=== PATIENT | female | born 1950 | race Caucasian/White ===

== ENCOUNTER 2018-01-14 10:39 | Inpatient (IN) | payer MEDICARE, OTHER ==
[~2018-01-14] VITALS: Ht 154.9 cm; Wt 89.8 kg
[~2018-01-14 10:39] MED LIST: AUGMENTIN 875875 MG PO; PREDNISONE 20 M20 M1 PO; PRINZIDE 10-121 EACH PO; PROAIR HFA8.5 GM IH; PROTONIX40 M2 PO; SYNTHROID112 MC1 PO; XANAX XR2 MG PO
[2018-01-14 10:50] VITALS: BP 126/73
[2018-01-14 11:21] LABS: HEMATOCRIT 34.4 % (37.0-47.0); HEMOGLOBIN 11.8 gm/dL (12.0-15.0); MCH 28.5 pg (26.0-34.0); MCHC 34.4 g/dL (28.0-37.0); MCV 82.9 fL (80.0-100.0); MPV 10.8 fl. (7.2-11.1); NUCLEATED RBCS 3 /100WBC; RBC 4.15 mil/uL (4.20-5.00); RDW-CV 13.2 % (10.5-14.5); WBC 29.3 thou/uL (4.0-11.0)
[2018-01-14] MEDS ORDERED: KLOR-CON 1010 MEQ PO (11:29)
[2018-01-14] MEDS ORDERED: ASPIR 8181 MG PO (11:29)
[2018-01-14] MEDS ORDERED: CHLORTHALIDONE25 MG PO (11:29)
[2018-01-14] MEDS ORDERED: ALIGN4 MG PO (11:30)
[2018-01-14] MEDS ORDERED: VITAMIN D1000 UNI1 PO (11:31)
[2018-01-14] MEDS ORDERED: DHA ALGAL-900300 MG PO (11:32)
[2018-01-14] MEDS ORDERED: VITAMIN B COMP1 EACH PO (11:32)
[2018-01-14] MEDS ORDERED: COLACE100 MG PO (11:33)
[2018-01-14] MEDS ORDERED: ADVAIR HFA 230M12 GM INH (11:34)
[2018-01-14] MEDS ORDERED: SPIRIVA INH (11:34)
[2018-01-14 11:41] LABS: ANION GAP 14 mmol/L (7-16); BUN 27 mg/dL (7-18); CALCIUM 11.4 mg/dL (8.5-10.1); CHLORIDE 83 mmol/L (98-107); CO2 24 mmol/L (21-32); CREATININE 1.1 mg/dL (0.6-1.3); GLUCOSE 116 mg/dL (70-99); SODIUM 121 mmol/L (136-145)
[2018-01-14 11:53] LABS: PLATELET COUNT* 15 thou/uL (150-400)
[2018-01-14 11:58] LABS: ALBUMIN 3.1 g/dL (3.4-5.0); ALKALINE PHOSPHATASE 205 U/L (46-116); LIPASE 166 U/L (73-393); SGOT 379 U/L (15-37); SGPT 104 U/L (30-65); TOTAL BILIRUBIN 1.3 mg/dL (<0.1-1.0); TOTAL PROTEIN 7.1 g/dL (6.4-8.2); TROPONIN-I LEVEL <0.06 ng/mL (<0.06)
[2018-01-14 11:59] LABS: ABSOLUTE MONOCYTES 3.2 thou/uL (0.0-1.2); METAMYELOCYTES 4 %; MYELOCYTES 2 %; PLATELET ESTIMATE DECREASED
[2018-01-14 12:00] LABS: POLYCHROMASIA Occasional
[2018-01-14 12:01] LABS: MACROCYTES 1+
[2018-01-14 12:24] LABS: URINE BILIRUBIN NEGATIVE (Negative); URINE BLOOD TRACE (Negative); URINE CLARITY CLEAR; URINE COLOR YELLOW; URINE GLUCOSE-RANDOM NEGATIVE (Negative); URINE KETONES NEGATIVE (Negative); URINE LEUKOCYTES-REFLEX NEGATIVE (Negative); URINE NITRITE-REFLEX NEGATIVE (Negative); URINE PROTEIN NEGATIVE (Negative); URINE UROBILINOGEN 0.2 E.U./dl (0.2-1.0)
[2018-01-14 14:17] LABS: URINE POTASSIUM-RANDOM 59.8 mmol/L
[2018-01-14 14:55] VITALS: BP 142/65
[2018-01-14 15:03] VITALS: BP 129/58
[2018-01-14 18:08] VITALS: BP 117/63; BP 124/64
[2018-01-14 18:33] LABS: CALCIUM 10.5 mg/dL (8.5-10.1); POTASSIUM 3.6 mmol/L (3.5-5.1)
[2018-01-14 18:37] LABS: APTT 27.8 Seconds (25.0-31.3); INR 1.2; PROTIME 11.4 Seconds (9.20-11.50)
[2018-01-14 20:00] VITALS: BP 126/69
[2018-01-14 20:31] LABS: ABSOLUTE BASOPHILS 0.2 thou/uL (0.0-0.2); ABSOLUTE EOSINOPHILS 0.3 thou/uL (0.0-0.7); ABSOLUTE LYMPHOCYTES 6.9 thou/uL (0.8-5.3); ABSOLUTE MONOCYTES 2.7 thou/uL (0.0-1.2); BASOPHILS 0.7 %; HEMATOCRIT 32.6 % (37.0-47.0); HEMOGLOBIN 11.2 gm/dL (12.0-15.0); LYMPHOCYTES 23.7 %; MCH 28.5 pg (26.0-34.0); MCHC 34.3 g/dL (28.0-37.0); MCV 83.3 fL (80.0-100.0); MONOCYTES 9.3 %; MPV 8.1 fl. (7.2-11.1); NUCLEATED RBCS 2 /100WBC; POLYS 65.3 %; RBC 3.92 mil/uL (4.20-5.00); RDW-CV 13.4 % (10.5-14.5); WBC 29.1 thou/uL (4.0-11.0)
[2018-01-14 20:32] LABS: PLATELET COUNT* 65 thou/uL (150-400)
[2018-01-14 22:00] VITALS: BP 131/63
[2018-01-15] VITALS (18 sets, daily range): BP systolic 109–133; BP diastolic 46–65
[2018-01-15 06:06] LABS: HEMATOCRIT 26.1 % (37.0-47.0); HEMOGLOBIN 9.2 gm/dL (12.0-15.0); MCHC 35.2 g/dL (28.0-37.0); MCV 82.2 fL (80.0-100.0); MPV 8.7 fl. (7.2-11.1); NUCLEATED RBCS 8 /100WBC; RBC 3.18 mil/uL (4.20-5.00); RDW-CV 13.2 % (10.5-14.5); WBC 26.3 thou/uL (4.0-11.0)
[2018-01-15 06:08] LABS: CALCIUM 10.1 mg/dL (8.5-10.1); CREATININE 0.9 mg/dL (0.6-1.3); POTASSIUM 3.9 mmol/L (3.5-5.1)
[2018-01-15 06:09] LABS: PLATELET COUNT* 29 thou/uL (150-400)
[2018-01-15 07:34] LABS: ABSOLUTE BASOPHILS 0.3 thou/uL (0.0-0.2); ABSOLUTE EOSINOPHILS 0.3 thou/uL (0.0-0.7); ABSOLUTE LYMPHOCYTES 2.4 thou/uL (0.8-5.3); ABSOLUTE MONOCYTES 1.3 thou/uL (0.0-1.2); ABSOLUTE NEUTROPHILS 22.1 thou/uL (1.6-8.1); ATYPICAL MONONUCLEARS 2 %; METAMYELOCYTES 4 %; MYELOCYTES 1 %
[2018-01-15 07:36] LABS: HYPOCHROMASIA 2+; POLYCHROMASIA 2+
[2018-01-15 07:38] LABS: PLATELET ESTIMATE DECREASED
--- NOTE | 2018-01-15 12:29 | CON ---
[address] [address] CONSULTATION Name: BARTLETTTONYA J Room: [address] ADM IN M.R.#: [id number] Admission: 01/14/18 Attend Phys: Davidson De Leon MD Discharge: Date of : 54 Report #: [id number] THIS REPORT FOR: //name// CC: Davidson De Leon Jus Stokes DATE OF SERVICE: 01/14/2018 ATTENDING PHYSICIAN: Davidson De Leon MD REASON FOR EVALUATION: Abdominal pain with hepatitis, hyponatremia and thrombocytopenia. HISTORY OF PRESENT ILLNESS: Chart reviewed, patient examined. This is a 67-year-old woman with a known COPD, history of Graves' disease, reflux as well who is admitted through the emergency room with a several day history of abdominal pain starting perhaps 3-4 days ago associated with anorexia, poor p.o. intake, nausea with attempted eating. Also she has had some hemoptysis. On evaluation, found to have elevated LFTs. She did note she has been taking primarily acetaminophen, but some degree ibuprofen as well for the pain. She has developed some weight loss of 12 pounds in the last couple of weeks. She does have easy bruising and was confirmed to have thrombocytopenia as well. Imaging studies are concerning including a CT chest, which shows bilobed irregular shaped soft tissue mass extending at the aortopulmonary window and left suprahilar region. CT abdomen as well as ultrasound raise question of some multiple hypodense lesions in the liver. There is a question of metastatic disease. Lactic acid was peaked at 7.3 and repeat was 6.0. She is empirically started on antibiotics with a dose of piperacillin and tazobactam. She is lucid and does admit to have moderate discomfort. ALLERGIES: TETRACYCLINE, HYDROCODONE, ACETAMINOPHEN AND ERYTHROMYCIN. CURRENT MEDICATIONS: Include levothyroxine, albuterol, budesonide, cholecalciferol, pantoprazole, metoprolol and ondansetron. PAST MEDICAL HISTORY: Above noted COPD, hypothyroidism, previous cholecystectomy and reflux. SOCIAL HISTORY: Former smoker, [id number]. No ethanol. FAMILY HISTORY: Noncontributory. REVIEW OF SYSTEMS: As above. PHYSICAL EXAMINATION: GENERAL: She is a pleasant and alert. She appears somewhat chronically ill, [place] [address] CONSULTATION Name: TONYA BARTLETT Room: [address] IN [facility]#: [id number] Admission: 01/14/18 Attend Phys: Davidson De Leon MD Discharge: Date of : 54 Report #: [id number] undernourished, in some mild distress. VITAL SIGNS: Temperature 97.6, pulse 90, respirations 16 and blood pressure 129/58. SKIN: Warm, dry and no rashes. HEENT: Otherwise unremarkable. He has got nasal cannula oxygen in place. NECK: Supple. LUNGS: Scattered coarse breath sounds. HEART: Regular. Borderline tachycardic. I do not appreciate a murmur. ABDOMEN: Distended, soft, somewhat tender, although I do not think there are any overt peritoneal signs. GENITOURINARY AND RECTAL: Deferred. LABORATORY DATA: Electrolytes: Sodium 121, potassium 4, chloride 83, bicarbonate is 24, BUN and creatinine 27 and 1.1 and glucose of 116. AST of 379, ALT 104, total bilirubin 1.3, alkaline phosphatase is 205. Albumin is 3.1. Total protein 7.1. CBC: White count 29.3, H and H 11.8 and 34.4, platelets of 15. Urinalysis is unremarkable. Chest x-ray: Left suprahilar medial lung or mediastinal density. CT of abdomen and pelvis and ultrasound, multiple hepatic nodules and multiple periportal peripancreatic lymph nodes. CT of the chest showed an irregular mass 5.0 x 3.2 x 4.7 cm and the lactic acid initially 7.3 and repeat was 6.0. ASSESSMENT: Pulmonary mass, multiple liver lesions, hepatitis, certainly concerning for occult process such as malignancy. I think it is reasonable to continue empiric antimicrobial therapy at this point. I do not have any particular exposure history, but we will go ahead and check additional studies such as a TSH, cortisol level and Tylenol level and we will await culture results. Discussed with Dr. De Leon. <ELECTRONICALLY SIGNED> By: Elmer Whitt MD 01/15/18 1229 1719 [id number] Whitt MD /nt
--- NOTE | 2018-01-15 12:58 | EKG ---
[place] [address] ELECTROCARDIOGRAM REPORT Name: TONYA BARTLETT Room: [address] IN .R.#: [id number] Admission: 01/14/18 Attend Phys: Davidson De Leon MD Discharge: Date of : 54 Report #: [id number] THIS REPORT FOR: //name// [facility] ED Test Date: 2018-01-14 Test Time: 11:02:53 Pat Name: TONYA BARTLETT Department: Room: Gender: Bilingual Teacher Aide: Jannette CARTAGENA : 1950 Requested By: Albaro Neff Order Number: [id number] MD: Kike Valle Measurements Intervals [place] Rate: 103 P: 81 AR: 155 QRS: 57 QRSD: 94 T: 63 QT: 341 QTc: 447 Interpretive Statements Sinus tachycardia Borderline T abnormalities, anterior leads No previous ECG available for comparison Electronically Signed On 01-15-2018 12:57:55 CDT by Kike Valle [email or web address] <ELECTRONICALLY SIGNED> By: Kike Valle MD, [facility] 01/15/18 1257 01 01 Kike Valle MD, FACC /EPI
[2018-01-15 22:06] LABS: HIV-1/HIV-2 ANTIBODY Non Reactive (Non Reactive)
[2018-01-16] VITALS: BP 127/59
[2018-01-16 02:00] VITALS: BP 104/38
[2018-01-16 02:12] LABS: HEPATITIS B SURFACE AG Negative (Negative)
[2018-01-16 05:14] LABS: ALBUMIN 2.7 g/dL (3.4-5.0); CALCIUM 10.8 mg/dL (8.5-10.1); CREATININE 0.9 mg/dL (0.6-1.3); POTASSIUM 3.8 mmol/L (3.5-5.1); TOTAL BILIRUBIN 1.1 mg/dL (<0.1-1.0); TOTAL PROTEIN 6.1 g/dL (6.4-8.2)
[2018-01-16 05:47] LABS: ABSOLUTE EOSINOPHILS 0.3 thou/uL (0.0-0.7); EOSINOPHILS 1.1 %; HEMOGLOBIN 8.8 gm/dL (12.0-15.0); WBC 25.2 thou/uL (4.0-11.0)
[2018-01-16 05:49] LABS: ABSOLUTE BASOPHILS 0.2 thou/uL (0.0-0.2); ABSOLUTE LYMPHOCYTES 5.8 thou/uL (0.8-5.3); ABSOLUTE MONOCYTES 2.7 thou/uL (0.0-1.2); ABSOLUTE NEUTROPHILS 16.2 thou/uL (1.6-8.1); BASOPHILS 0.7 %; HEMATOCRIT 24.8 % (37.0-47.0); LYMPHOCYTES 23.1 %; MCH 29.5 pg (26.0-34.0); MCHC 35.5 g/dL (28.0-37.0); MONOCYTES 10.7 %; MPV 8.5 fl. (7.2-11.1); NUCLEATED RBCS 13 /100WBC; POLYS 64.4 %; RBC 2.99 mil/uL (4.20-5.00); RDW-CV 13.5 % (10.5-14.5)
[2018-01-16 06:01] LABS: PLATELET COUNT* 30 thou/uL (150-400)
[2018-01-16 09:00] VITALS: BP 114/83
[2018-01-16 13:08] LABS: CALCIUM 10.8 mg/dL (8.5-10.1); POTASSIUM 3.5 mmol/L (3.5-5.1)
[2018-01-16 15:41] VITALS: BP 122/57
[2018-01-16 20:00] VITALS: BP 134/72
[2018-01-17 00:24] VITALS: BP 134/68
[2018-01-17 03:56] VITALS: BP 121/59
[2018-01-17 07:45] VITALS: BP 122/58
[2018-01-17 08:19] LABS: ABSOLUTE BASOPHILS 0.2 thou/uL (0.0-0.2); ABSOLUTE EOSINOPHILS 0.2 thou/uL (0.0-0.7); ABSOLUTE LYMPHOCYTES 6.5 thou/uL (0.8-5.3); ABSOLUTE MONOCYTES 2.6 thou/uL (0.0-1.2); ABSOLUTE NEUTROPHILS 15.1 thou/uL (1.6-8.1); BASOPHILS 0.9 %; HEMATOCRIT 24.3 % (37.0-47.0); HEMOGLOBIN 8.4 gm/dL (12.0-15.0); LYMPHOCYTES 26.5 %; MCH 28.9 pg (26.0-34.0); MCHC 34.6 g/dL (28.0-37.0); MCV 83.4 fL (80.0-100.0); MONOCYTES 10.4 %; MPV 8.6 fl. (7.2-11.1); NUCLEATED RBCS 21 /100WBC; POLYS 61.2 %; RBC 2.91 mil/uL (4.20-5.00); WBC 24.7 thou/uL (4.0-11.0)
[2018-01-17 08:21] LABS: PLATELET COUNT* 19 thou/uL (150-400)
[2018-01-17 12:29] VITALS: BP 119/59
[2018-01-17 16:21] VITALS: BP 114/60
[2018-01-17 20:00] VITALS: BP 123/54
[2018-01-18] VITALS: BP 122/57
[2018-01-18 04:00] VITALS: BP 155/55
[2018-01-18 05:08] LABS: CREATININE 0.9 mg/dL (0.6-1.3)
[2018-01-18 08:20] VITALS: BP 109/56
[2018-01-18 11:42] VITALS: BP 111/53
[2018-01-18 16:00] VITALS: BP 113/38
[2018-01-18 20:42] VITALS: BP 121/62
[2018-01-19 00:11] VITALS: BP 118/61
[2018-01-19 03:50] VITALS: BP 112/55
[2018-01-19 06:55] LABS: ALBUMIN 2.6 g/dL (3.4-5.0); CALCIUM 9.1 mg/dL (8.5-10.1); POTASSIUM 4.3 mmol/L (3.5-5.1); TOTAL BILIRUBIN 5.1 mg/dL (<0.1-1.0); TOTAL PROTEIN 5.3 g/dL (6.4-8.2)
[2018-01-19 07:45] VITALS: BP 128/60
[2018-01-19 13:26] VITALS: BP 113/59
[2018-01-19 13:46] LABS: PARATHYROID HORMONE 8 pg/mL (15-65); eGFR IF AFRICAN AMERICAN 87 (>59)
[2018-01-19 13:49] LABS: IgG 650 mg/dL (700-1600); IgM 91 mg/dL (26-217)
[2018-01-19 16:07] LABS: CORTISOL 30 MIN 26.2 ug/dL (Not Estab.); CORTISOL 60 MIN 17.9 ug/dL (Not Estab.); CORTISOL BASELINE 4.5 ug/dL (())
[2018-01-19 20:00] VITALS: BP 119/57
[2018-01-20] VITALS (9 sets, daily range): BP systolic 115–136; BP diastolic 47–63
[2018-01-20 05:08] LABS: MCV 85.4 fL (80.0-100.0)
[2018-01-20 05:10] LABS: MCH 29.7 pg (26.0-34.0); MCHC 34.8 g/dL (28.0-37.0); MPV 8.6 fl. (7.2-11.1); RBC 1.36 mil/uL (4.20-5.00); RDW-CV 13.6 % (10.5-14.5); WBC 17.4 thou/uL (4.0-11.0)
[2018-01-20 05:31] LABS: ALBUMIN 2.5 g/dL (3.4-5.0); CALCIUM 9.3 mg/dL (8.5-10.1); CREATININE 0.9 mg/dL (0.6-1.3); MAGNESIUM 1.6 mg/dL (1.8-2.4); TOTAL BILIRUBIN 7.6 mg/dL (<0.1-1.0); TOTAL PROTEIN 5.8 g/dL (6.4-8.2)
[2018-01-20 05:48] LABS: HEMATOCRIT 11.6 % (37.0-47.0)
[2018-01-20 07:37] LABS: IgA 185 mg/dL (87-352)
--- NOTE | 2018-01-20 09:18 | CON ---
[address] [address] CONSULTATION Name: TONYA BARTLETT Room: [address] IN M.R.#: [id number] Admission: 01/14/18 Attend Phys: Davidson De Leon MD Discharge: Date of : 54 Report #: [id number] THIS REPORT FOR: //name// CC: Davidson Stokes DATE OF SERVICE: 01/14/2018 REASON FOR CONSULTATION: Thrombocytopenia, leukocytosis. HISTORY OF PRESENT ILLNESS: A 67-year-old female was evaluated after she had bloody stool for the last few days. She had trigger point injections in her back. She also experienced hemoptysis. She recently completed a course of steroids and antibiotics with amoxicillin. The patient reported multiple ecchymoses. Initial evaluation in the Emergency Room revealed that she has a white count of 29,000, hemoglobin 11.8; however, the platelet counts were 15,000. A peripheral blood smear showed elevated absolute neutrophils with elevated lymphocytes; however, there are some nucleated RBCs, macrocytic cells. Imaging today including CT of the abdomen without contrast showed nonspecific celiac lymphadenopathy. Pelvic cystic mass is most likely large ovarian cyst, fatty liver. CT of the chest showed bilobed irregular shaped soft tissue mass, adenopathy extending out of the aortopulmonary window into the left suprahilar region measuring 5 x 4.7 cm, highly concerning of malignancy. There was also 5 x 5 cm mass area in the left lower lobe, hypodense lesions in the left lobe of the liver suggestive of metastatic disease. In addition to that, ultrasound of the liver showed multiple hypodense nodules throughout the liver consistent with liver metastases with multiple periaortic and peripancreatic lymph nodes 3.3 cm. The patient was admitted to the Intensive Care Unit. She is in the process of having platelet transfusion. REVIEW OF SYSTEMS: All systems reviewed. It was negative except the above. PAST MEDICAL HISTORY: Significant for COPD, hypothyroidism, vitamin D deficiency, GERD, Graves disease, chronic bronchitis. PAST SURGICAL HISTORY: Cholecystectomy, thyroidectomy. SOCIAL HISTORY: She has been a smoker of 1 pack; however, she quit last month, but she smoked 1 pack for the last 40 years. She does not drink alcohol. ALLERGIES: TETRACYCLINE, HYDROCODONE, ACETAMINOPHEN, ERYTHROMYCIN. FAMILY HISTORY: Noncontributory. PHYSICAL EXAMINATION: VITAL SIGNS: Today, temperature is 36.4, pulse is 98, respirations 16, [place] [address] CONSULTATION Name: TONYA BARTLETT Room: [address] IN [facility]#: [id number] Admission: 01/14/18 Attend Phys: Davidson De Leno MD Discharge: Date of : 54 Report #: [id number] pressure is 129/58, SpO2 was 99% on 2 liters. GENERAL: The patient was lying in bed. She was awake, alert, oriented. LUNGS: Scattered wheezing. ABDOMEN: The patient had tenderness in the right upper quadrant. SKIN: Multiple ecchymoses, multiple bruises have been noticed. LABORATORY DATA: Today, WBC 29,000, hemoglobin 11.8, platelets 15,000. Peripheral blood smear showed macrocytic cells and polychromasia. Sodium is 121, lactic acid 6.0, bilirubin is 1.3, AST is 379, ALT is 105, alkaline phosphatase is 207. IMAGING: As mentioned above. ASSESSMENT AND PLAN: A 67-year-old female who has been a heavy smoker, presented with bloody stool with epistaxis, was found to have severe thrombocytopenia at 15,000 with elevated leukocytosis, very mild anemia. 1. I would like to rule out any possibility of microangiopathic hemolytic anemia. We will obtain LDH, haptoglobin stat with a TRACIE and retic count. We will obtain a peripheral blood smear. Other causes of acute thrombocytopenia will be nutritional deficiencies like B12 and folic acid. We will also check a DIC profile. 2. The patient had multiple lymphadenopathy and widespread metastases in the liver and the lung, not sure whether this is connected with her thrombocytopenia. Possibilities could be lymphoma with involvement of her bone marrow or small cell carcinoma that could invade her bone marrow biopsy. We will arrange for Interventional Radiology for biopsy with the most accessible lesion, most likely it could be the liver. We will check CBC in a.m. Also, we will check her platelet count 1 hour post transfusion. <ELECTRONICALLY SIGNED> By: Brunilda Moore MD 01/20/18 0918 1748 [id number] Moore MD /nt
[2018-01-20 12:03] LABS: DIRECT BILIRUBIN 5.9 mg/dL (<0.1-0.3); TOTAL BILIRUBIN 7.6 mg/dL (<0.1-1.0)
[2018-01-20 13:29] LABS: MCH 29.7 pg (26.0-34.0); RBC 2.81 mil/uL (4.20-5.00)
[2018-01-20 13:30] LABS: HEMATOCRIT 23.8 % (37.0-47.0); MCHC 35.1 g/dL (28.0-37.0); MCV 84.6 fL (80.0-100.0); RDW-CV 14.1 % (10.5-14.5); WBC 12.3 thou/uL (4.0-11.0)
[2018-01-20 13:38] LABS: HEMOGLOBIN 8.3 gm/dL (12.0-15.0)
[2018-01-20 13:42] LABS: INR 1.3; PROTIME 12.6 Seconds (9.20-11.50)
[2018-01-20 14:13] LABS: KAPPA FREE LIGHT CHAINS 14.6 mg/L (3.3-19.4); LAMBDA FREE LIGHT CHAINS 19.4 mg/L (5.7-26.3)
[2018-01-21 04:00] VITALS: BP 136/65
[2018-01-21 08:00] VITALS: BP 135/58
[2018-01-21] MEDS ORDERED: AUGMENTIN 500-1 EACH PO (09:51)
[2018-01-21] MEDS ORDERED: AUGMENTIN600 MG/5 M PO (10:07)
[2018-01-21] MEDS ORDERED: PHENERGAN 25 MG25 M1 PO (10:07)
[2018-01-21 10:34] VITALS: BP 135/58
--- NOTE | 2018-01-22 17:22 | CON ---
[address] [address] CONSULTATION Name: TRITONYA J Room: [address] IN M.R.#: [id number] Admission: 01/14/18 Attend Phys: Davidson De Leon MD Discharge: 01/21/18 Date of : 54 Report #: [id number] THIS REPORT FOR: //name// CC: Davidson De Leon Jus Stokes DATE OF SERVICE: 01/20/2018 REASON FOR CONSULTATION: Small cell lung cancer. REQUESTING PHYSICIAN: Davidson De Leon MD. HISTORY OF PRESENT ILLNESS: The patient is an unfortunate 67-year-old woman who was in her normal state of health until several months ago, noticed low back pain. Initially, she did not pay attention, but pain was getting worse, gradually started losing weight. She decided to see primary care physician. She had a blood work done. She was called later to come to the hospital because of abnormal blood test. She was found to have thrombocytopenia and platelets are 15 and leukocytosis WBC 29.3. She was admitted to the hospital. She had imaging studies done, which showed a large mediastinal lymphadenopathy, left lower lobe mass, liver mass and multiple liver nodules. She had a liver biopsy. Pathology showed a small cell lung cancer preliminary report. She was seen by Dr. Moore who discussed treatment options including chemotherapy. Because the patient had cytopenia, Dr. Moore recommended bone marrow biopsy, the patient declined. The patient requested second opinion for her options. She is in the bed and somewhat lethargic, but arousable. She is able to answer questions. It seems she understood discussion. She does not have headaches, but admits that she is having some visual changes and it has been difficult to read. She continues to have low back pain, epistaxis, shortness of breath, extreme weakness. PAST MEDICAL HISTORY: Significant for COPD. She is oxygen dependent at night. She has a history of hypertension and sleep apnea. SOCIAL HISTORY: She has very supportive family. She has a longstanding history of smoking, quit smoking a month ago. FAMILY HISTORY: Noncontributory. REVIEW OF SYSTEMS: See above. PHYSICAL EXAMINATION: GENERAL: Reveals chronically ill-appearing woman as well as acutely uncomfortable woman, somewhat lethargic, but able to give me history. VITAL SIGNS: Blood pressure 116/50, heart rate is 108, temperature 98.9, respirations 18. [place] [address] CONSULTATION Name: TONYA BARTLETT Room: [address] IN [facility]#: [id number] Admission: 01/14/18 Attend Phys: Davidson De Leon MD Discharge: 01/21/18 Date of : 54 Report #: [id number] HEENT: Shows epistaxis. NECK: Supple. HEART: Normal S1, S2. LUNGS: Clear. ABDOMEN: Soft. MENTAL STATUS: Lethargic. LYMPHATIC: There is no supraclavicular or axillary lymphadenopathy. SKIN: Somewhat jaundiced. LABORATORY DATA: White count 17.4, hemoglobin this morning was 8.0 after transfusion of 3 packs of packed red blood cells. Hemoglobin is 8.3, platelets around 12 this morning, after transfusion 59. Sodium 128, potassium 4.0, AST 488, total bilirubin 7.6, 5.9, alkaline phosphatase 278, ALT 211. CT of chest reviewed. CT of abdomen and pelvis reviewed. Pathology results were discussed with Dr. Bowie. Dr. Bowie thinks that the patient has neuroendocrine carcinoma, most likely small cell cancer. 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 ASSESSMENT AND PLAN: Clinically, this is small cell lung cancer, extensive stage with severe complications, syndrome of inappropriate antidiuretic hormone, cytopenia, severe thrombocytopenia, now developing liver failure. I discussed prognosis and treatment options with the patient. I discussed prognosis and the natural history of small cell lung cancer. Unfortunately, I do not think the patient is a candidate for any chemotherapy at this point. Chemotherapy will definitely result in mortality with more complications and morbidity. I recommended to consider hospice. The patient is interested in hospice. Family is agreeable, not able to take the patient home. I recommend to consider hospice consult in the hospital before going home with hospice. Thrombocytopenia, epistaxis. I discussed this with ____ thrombocytopenia to avoid severe bleeding at this point. Thank you very much for allowing me to participate in the care of this patient. Around this visit, more than 50% of the time was spent in discussion of prognosis with options, discussion of the case with Dr. Bowie and review of medical records. <ELECTRONICALLY SIGNED> By: Evelyn Quach MD 01/22/18 1722 1419 [id number] Quach MD /nt
--- NOTE | 2018-01-29 08:41 | CON ---
[address] [address] CONSULTATION Name: BARTLETTTONYA J Room: [address] IN M.R.#: [id number] Admission: 01/14/18 Attend Phys: Davidson De Leon MD Discharge: 01/21/18 Date of : 54 Report #: [id number] THIS REPORT FOR: //name// CC: Davidson De Leon Jus Stokes DATE OF SERVICE: 01/15/2018 CONSULTING PHYSICIAN: Davidson De Leon MD REASON FOR NEPHROLOGY CONSULTATION: Hyponatremia. REASON FOR ADMISSION: The patient came in for abdominal pain and nausea. HISTORY OF PRESENT ILLNESS: This is a very pleasant 67-year-old female who initially went to her PCP because she had been having bloody stools and nausea and abdominal pain for the past several days. She is an active smoker and she recently completed a course of steroids. She was found to have abnormal labs in the ER in the form of sodium of 121, lactic acidosis, severe thrombocytopenia, platelet count of 29,000 today and leukocytosis, hence she was admitted. We do not have a baseline sodium on her, but Nephrology was consulted for hyponatremia. She does state that she was recently switched from her other antihypertensive, which I am not aware of, to chlorthalidone 25 mg a day. Also, the patient was also taking ibuprofen recently because of her back pain. She was started on IV fluids yesterday, which her sodium has improved by 6 points in 18 hours. On further imaging, CT abdomen and pelvis in the ER revealed liver lesions, which were concerning for metastasis as well as a left suprahilar and mediastinal mass. Hematology has been consulted. ALLERGIES: TETRACYCLINE, ERYTHROMYCIN BASE, HYDROCODONE AND ACETAMINOPHEN. REVIEW OF SYSTEMS: Abdominal pain and nausea and poor oral intake and also back pain and epistaxis and she also had bloody stools and she just has been feeling really bad. HOME MEDICATIONS: Include levothyroxine, chlorthalidone, potassium chloride, aspirin, bifidobacterium, cholecalciferol vitamin B complex, docusate, fluticasone. PAST MEDICAL AND SURGICAL HISTORY: Includes GERD, Graves disease, chronic bronchitis, cholecystectomy, bilateral tubal ligation, COPD and thyroid removal. SIGNIFICANT FAMILY HISTORY: It was reviewed and was noncontributory. SOCIAL HISTORY: She smokes. No history of alcohol. No [place] [address] CONSULTATION Name: TONYA BARTLETT Jannette Room: [address]#: [id number] Admission: 01/14/18 Attend Phys: Davidson De Leon MD Discharge: 01/21/18 Date of : 54 Report #: [id number] PHYSICAL EXAMINATION: VITAL SIGNS: Blood pressure is 133/64, pulse ox is 96, respiratory rate 17, pulse rate is 96 and temperature is 36.6. GENERAL: She is awake, alert, oriented x 3, sitting up in chair. HEAD, EYES, EARS, NOSE AND THROAT: Mucous membranes are moist. NECK: No JVD. CHEST: She has bilateral diminished breath sounds, but no crackles or wheezing. CARDIOVASCULAR: S1, S2 normal. No murmurs are noted. ABDOMEN: Soft. It was nondistended, nontender. Bowel sounds are present. EXTREMITIES: There is no lower extremity edema, symmetrical extremities. NEUROLOGICAL FUNCTION: Gross neurological function is intact. PSYCHIATRY: Mood and affect seem to be normal. LABORATORY DATA: Urine sodium was 10. White count was 26.3, platelet count was 29,000. Sodium was 127 this morning from 121 yesterday, and other labs are reviewed. Creatinine was normal at 0.9. IMAGING: Abdominal ultrasound, chest x-ray and chest CT, and abdomen and pelvis CT were reviewed. ASSESSMENT AND PLAN: 1. Hypovolemic hyponatremia, likely acute: Baseline sodium is not known, but sodium was 121 when she came in yesterday and she was also taking NSAIDs as well as chlorthalidone, and she was not eating and drinking well. All these medications have been stopped and she was given normal saline with which her sodium got better by 6 points in 18 hours. Hence, I stopped her normal saline now. Sodium should not go up by more than 8 points in 24-hour timespan and hence sodium will be checked at 11:00 a.m. today. 2. Abdominal pain and incidentally found liver lesions as well as left-sided suprahilar and mediastinal mass: The patient most likely has lung cancer with metastasis, Hematology is following and the patient might go for IR-guided liver biopsy. 3. Left-sided kidney cyst: This can be followed up as an outpatient. 4. Hypertension: Blood pressure is currently controlled. Keep holding her chlorthalidone for now. 5. Leukocytosis and thrombocytopenia: Hematology is again following. We are also considering possibility of lymphoma. Thank you for this consultation. We will continue to follow along with you. I have asked nursing to call me with a sodium at 11:00 a.m. if it is more than 129, because in that case we will have to re-lower it. [address] [address] CONSULTATION Name: TONYA BARTLETT Room: [address] [facility] IN .R.#: [id number] Admission: 01/14/18 Attend Phys: Davidson De Leon MD Discharge: 01/21/18 Date of : 54 Report #: [id number] Thank you so much for this consultation. <ELECTRONICALLY SIGNED> By: Leticia Livingston MD 01/29/18 0841 1100 [id number] Livingston MD /nt
--- NOTE | 2018-02-03 15:06 | PATH ---
[address] [address] PATHOLOGY RPT PROCEDURE Name: TONYA BARTLETT Room: [address] IN M.R.#: [id number] Admission: 01/14/18 Date of : 54 Discharge: 01/21/18 Report #: [id number] Path Case #: [id number] [facility] Accession Number: [id number] . 01 Material submitted: . LIVER-LEFT LOBE . 01 Clinical history: . Mass, 2.2 x 2.1 x 3.2 cm . . 02 Diagnosis: Left lobe liver mass, image-guided core biopsies: - SMALL CELL CARCINOMA INVOLVING LIVER. SEE COMMENT. [facility]01/21/2018 . 02 Comment: Tissue cores from each of blocks A1, A2 and A3 show extensive involvement by small cell carcinoma with scattered foci of residual liver parenchyma. A panel of properly-controlled immunohistochemical stains performed on A1 show the following results, supporting the diagnosis: . Keratin AE1/AE3: Patchy weak positive, occasionally in perinuclear dot pattern TTF-1: Negative CD56: Strong positive Keratin GERRY: Strong positive CK7: Patchy strong positive CK20: Negative S100: Negative Vimentin: Negative . Although unable to definitively identify the primary, the tumor is compatible with a bronchogenic primary. Preliminary findings discussed with Dr. Moore on 01/19/2018 at approximately 09:[address] Quach at approximately 14:00 on 01/20/2018. Reviewed with Dr. Dulce Lugo who agrees with the diagnosis. . (ANTONIO:mml; 01/21/18) . 02 Electronically signed: . Lonny Bowie MD, Pathologist NPI- [id number] . 01 Gross description: . Received in formalin labeled "Tonya Bartlett, liver left lobe" and consists of 6 denis tissue cores ranging in length from 0.5 cm-1.4 cm, each with a uniform diameter of less than 0.1 cm which are entirely submitted A1-[place] [address] PATHOLOGY RPT PROCEDURE Name: TONYA BARTLETT Jannette Room: [address] IN M.R.#: [id number] Admission: 01/14/18 Date of : 54 Discharge: 01/21/18 Report #: [id number] Path Case #: [id number] (GUSTABO; 01/16/2018) JBR/JBR . 02 Pathologist provided ICD-10: C22.9 . 02 CPT . 514986, Y06428, W71575 Performed at: [address] [facility] [id number] [facility] [address], [place], [place] [id number] MD Jose Hartmann MD Phone: [phone] Performed at: [address] [address] [address], [place], [place] [id number] MD Lonny oBwie MD Phone: [phone]
== END 2018-01-21 11:50 | disposition hospice, home (50) | DRG 871 ==
LOC: M.ERS 10:39 → M.ICU 12:42 → M.TBA-ER 12:42 → M.ICU 14:59 → M.2W 01-16 11:32
PROVIDERS: Family Medicine; Internal Medicine; Internal Medicine Nephrology; ADMIT Internal Medicine
PROC: 30243R1 Transfusion of Nonautologous Platelets into Central Vein, Percutaneous Approach (ICD-10-PCS; principal; 2018-01-14)
PROC: 05HY33Z Insertion of Infusion Device into Upper Vein, Percutaneous Approach (ICD-10-PCS; 2018-01-15)
PROC: B54MZZA Ultrasonography of Right Upper Extremity Veins, Guidance (ICD-10-PCS; 2018-01-15)
PROC: 0FB23ZX Excision of Left Lobe Liver, Percutaneous Approach, Diagnostic (ICD-10-PCS; 2018-01-15)
PROC: 30243N1 Transfusion of Nonautologous Red Blood Cells into Central Vein, Percutaneous Approach (ICD-10-PCS; 2018-01-20)
DX: A41.9 Sepsis, unspecified organism (principal); E43 Unspecified severe protein-calorie malnutrition; J18.9 Pneumonia, unspecified organism; C34.90 Malignant neoplasm of unspecified part of unspecified bronchus or lung; E87.2 Acidosis; D62 Acute posthemorrhagic anemia; E22.2 Syndrome of inappropriate secretion of antidiuretic hormone; J44.0 Chronic obstructive pulmonary disease with (acute) lower respiratory infection; J44.1 Chronic obstructive pulmonary disease with (acute) exacerbation; C78.7 Secondary malignant neoplasm of liver and intrahepatic bile duct; D69.6 Thrombocytopenia, unspecified; K72.90 Hepatic failure, unspecified without coma; Z66 Do not resuscitate; N28.1 Cyst of kidney, acquired; I10 Essential (primary) hypertension; E83.52 Hypercalcemia; E83.41 Hypermagnesemia; R04.0 Epistaxis; K21.9 Gastro-esophageal reflux disease without esophagitis; E86.0 Dehydration; Z87.891 Personal history of nicotine dependence; Z79.2 Long term (current) use of antibiotics; Z79.82 Long term (current) use of aspirin; Z79.899 Other long term (current) drug therapy; Z88.6 Allergy status to analgesic agent; Z88.1 Allergy status to other antibiotic agents; Z88.8 Allergy status to other drugs, medicaments and biological substances; Z90.49 Acquired absence of other specified parts of digestive tract; Z68.37 Body mass index [BMI] 37.0-37.9, adult